=== PATIENT | male | born 1925 | race Caucasian/White ===

== ENCOUNTER 2016-03-01 16:05 | Emergency (ER) | payer MEDICARE, OTHER ==
[~2016-03-01] VITALS: Ht 167.6 cm; Wt 81.6 kg
--- NOTE | ~2016-03-01 | CON ---
[place], [place] REPORT OF CONSULTATION NAME[id number] UNIT #: [id number] ROOM: DOCTOR: KATHLEEN SKY MD BIRTHDATE: [birth year] DOS: HISTORY OF PRESENT ILLNESS: The patient is an 89-year-old gentleman with a history of difficulty voiding and incontinence. He presented to the office today, this afternoon where the bladder scan showed about well over 600 mL of urine. I was not able to get a catheter in the office because of the lack of proper catheters in the office, I therefore brought him to the ER and I was able to get a size 20 Coude catheter with some difficulty. Then, well over 500 mL of very dark, concentrated urine was drained. Digital examination performed showed the patient has a very large prostate, size about 50-60 grams, top of the gland could not be reached. 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 PLAN: The treatment plan was discussed with the patient's family, advised to bring him to the office next week. At that time, we will perform a cystoscopy and a prostate ultrasound to evaluate for the possible TUR of prostate; the alternative would be to maintain the patient either on a suprapubic catheter or a Singh catheter. Further management will depend on the initial workup such as prostate ultrasound for volume studies and a cystoscopy. KATHLEEN SKY MD CM:CONSTR:REPORT OF CONSULTATION [id number] 03/02/16 [id number] interface
[~2016-03-01 16:05] MED LIST: AMINOPHYLLIN200 MG PO; AMLODIPINE BESYL5 MG PO; AMLODIPINE10 MG PO; ASPIRIN CHILDRE81 MG PO; ASPIRIN325 MG PO; B12,B-12,B 12500 MC1 PO; CARAFATE1 GM PO; CLARITIN10 MG PO; HYDR12.5C PO; HYDROCODONE BIT1 T11 PO; KEFLEX500 MG PO; LASIX40 MG PO; LEVOFLOXACIN500 MG PO; LEVOTHYROXINE0.05 MG PO; LIDEX0.05% T; LISINOPRIL40 MG PO; MACROBID100 M1 PO; MEDROL DOSEPAK4 MG PO; PREDNICOT20 MG PO; PROTONIX40 MG PO; PYRIDIUM100 MG PO; SLOW-K 8MEQ8 MEQ PO; TRAMADOL HCL50 MG PO; TYLENOL325 M1 PO; VIBRAMYCIN100 MG PO
[2016-03-01 16:24] VITALS: BP 124/73
[2016-03-31] MEDS ORDERED: TAMSULOSIN HCL0.4 MG PO (09:13)
[2016-03-31] MEDS ORDERED: FINASTERIDE5 M1 PO (09:14)
[2016-04-22] MEDS ORDERED: LINEZOLID600 MG PO (08:39)
[2016-04-22] MEDS ORDERED: PHOSPHA 250 NEU1 TAB PO (08:40)
== END 2016-03-01 17:44 | disposition home or self-care (01) ==
LOC: ED 16:05
DX: R33.9 Retention of urine, unspecified (principal); K21.9 Gastro-esophageal reflux disease without esophagitis; E03.9 Hypothyroidism, unspecified; I12.9 Hypertensive chronic kidney disease with stage 1 through stage 4 chronic kidney disease, or unspecified chronic kidney disease; N18.9 Chronic kidney disease, unspecified; Z79.82 Long term (current) use of aspirin; Z79.899 Other long term (current) drug therapy; N30.01 Acute cystitis with hematuria; E87.6 Hypokalemia; E53.8 Deficiency of other specified B group vitamins

== ENCOUNTER 2016-05-14 16:47 | Emergency (ER) | payer MEDICARE, OTHER ==
[~2016-05-14] VITALS: Wt 72.6 kg
[~2016-05-14 16:47] MED LIST changes: +FINASTERIDE5 M1 PO; +LINEZOLID600 MG PO; +PHOSPHA 250 NEU1 TAB PO; +TAMSULOSIN HCL0.4 MG PO
[2016-05-14 17:39] LABS: HEMATOCRIT 29.4 % (42.0-52.0); HEMOGLOBIN 9.8 g/dl (14.0-18.0); MEAN CELL VOLUME 96.4 fl (80.0-94.0); MEAN CORPUSCULAR HGB 32.1 pg (27.0-31.0); MEAN CORPUSCULAR HGB CONC 33.3 g/dl (33.0-37.0); MEAN PLATELET VOLUME 10.4 fl (9.6-12.3); PLATELET COUNT AUTOMATED 167 10*3/uL (130-400); RED BLOOD COUNT 3.05 10*6/uL (4.50-5.90); RED CELL DISTRI WIDTH 13.6 % (0-14.5); WHITE BLOOD COUNT 5.3 10*3/uL (4.8-10.8)
[2016-05-14 17:48] LABS: PROTHROMBIN TIME 10.7 SECONDS (9.0-12.4)
[2016-05-14 17:52] LABS: POTASSIUM 3.8 mmol/L (3.5-5.1)
[2016-05-14 17:59] LABS: EOSINOPHIL # 0.1 10*3/uL (0-0.4); EOSINOPHILS 2 % (1-4); LYMPHOCYTE # 1.5 10*3/uL (1.3-4.4); METAMYELOCYTES 3 % (0-0); MONOCYTE # 0.2 10*3/uL (0.1-1.0); NEUTROPHIL # 3.3 10*3/uL (2.3-7.9); NEUTROPHILS 63 % (47-73); TOTAL CELLS COUNTED 100 #CELLS
[2016-05-14 18:01] LABS: PLATELET SUFFICIENCY NORMAL (NORMAL)
[2016-05-14 19:25] LABS: HEMATOCRIT 28.1 % (42.0-52.0); HEMOGLOBIN 9.5 g/dl (14.0-18.0)
== END 2016-05-14 20:26 | disposition short-term general hospital (02) ==
LOC: ED 16:47
PROVIDERS: Emergency Medicine Emergency Medical Services
DX: N40.0 Benign prostatic hyperplasia without lower urinary tract symptoms (principal); N32.89 Other specified disorders of bladder; N39.0 Urinary tract infection, site not specified; I12.9 Hypertensive chronic kidney disease with stage 1 through stage 4 chronic kidney disease, or unspecified chronic kidney disease; N18.9 Chronic kidney disease, unspecified; K21.9 Gastro-esophageal reflux disease without esophagitis; E03.9 Hypothyroidism, unspecified; Z79.82 Long term (current) use of aspirin; Z87.891 Personal history of nicotine dependence; Z98.42 Cataract extraction status, left eye; Z98.41 Cataract extraction status, right eye; Z98.890 Other specified postprocedural states; Z96.653 Presence of artificial knee joint, bilateral; Z79.899 Other long term (current) drug therapy